=== PATIENT | female | born 1970 | race Caucasian/White ===

== ENCOUNTER 2018-11-15 06:37 | Day surgery (SDC) | payer OTHER ==
[~2018-11-15] VITALS: Ht 170.2 cm; Wt 75.4 kg
[~2018-11-15 06:37] MED LIST: ALBU90OI61 INH; AMLO5 PO; CRINONE1.125 GM VAG; CYCL10 PO; HYDCHL25 PO; Naltrexone HCl50 MG PO; POTCHL10ER PO; Synthroid75 MCG PO; TESTOSTERONE5 G1 VAG; ZOLP10 PO
--- NOTE | 2018-11-15 07:18 | NUR ---
11/15/18 0718 Edouard Huffman CALL LIGHT WITHIN REACH
--- NOTE | 2018-11-15 08:22 | NUR ---
11/15/18 0822 Ginger Thomason SIMETHECONE USED DURING PROCEDURE.
== END 2018-11-15 09:05 | disposition home or self-care (01) ==
LOC: ORSCSDS 06:37
PROVIDERS: Surgery
PROC: 0DJD8ZZ Inspection of Lower Intestinal Tract, Via Natural or Artificial Opening Endoscopic (ICD-10-PCS; principal; 2018-11-15 08:00)
DX: Z12.11 Encounter for screening for malignant neoplasm of colon (principal); K62.89 Other specified diseases of anus and rectum; I10 Essential (primary) hypertension; M79.7 Fibromyalgia; J45.909 Unspecified asthma, uncomplicated; Z79.899 Other long term (current) drug therapy
CPT/HCPCS: J0330; J1980; J2405; J7120

== ENCOUNTER → 2022-06-29 | Outpatient (CLI) | payer BC, OTHER ==
[~2022-06-29] MED LIST changes: +AM STRESS PO; +ASCO500 PO; +CHOL10002 PO; +DHEA PO; +DOCU100 PO; +ESTR2 PO; +IBUP800 PO; +IBUPROFEN200 MG PO; +IRON PO; +NAPR220 PO; +PROM25 PO; +Percocet 5-3251 EACH PO; +SIME80CH PO; +TESTOSTERONE5 G1; -TESTOSTERONE5 G1 VAG
== END | disposition home or self-care (01) ==
LOC: LAB SHORT 13:06 → LAB 13:06
DX: R10.9 Unspecified abdominal pain (principal)
CPT/HCPCS: 87086